=== PATIENT | female | born 1955 | race Caucasian/White ===

== ENCOUNTER 2018-10-11 12:47 | Emergency (ER) | payer OTHER ==
[2018-10-11 13:10] VITALS: BP 160/77
[2018-10-11] MEDS ORDERED: Lidocaine 1% 5ml 10 MG/ML VIAL IJ ONE ×2 (13:39→13:56)
--- NOTE | 2018-10-11 13:39 | ED Physician Documentation ---
General Adult - HPI Stated Complaint: using weedeater and got finger caught Chief Complaint: Laceration/Recheck/Suture Additional Information: Patient presents to ED after sustaining a laceration to left middle finger while using a pipe bowls paint trimmer at home today. Patient is current on tetanus. Left middle finger with 2 lacerations side by side, 2 cm and 3 cm Onset: hours (1) Timing: still present Severity: moderate - ROS CONST: denies: fever EYES/ENT: none CVS/RESP: none GI/: none MS/SKIN/LYMPH: none NEURO/PSYCH: denies: headache - PAST HX Past History: none Other History: diabetes Type 2 Surgeries/Procedures: none Allergies/Adverse Reactions: Allergies Allergy/AdvReac Type Severity Reaction Status Date / Time No Known Allergies Allergy Verified 10/11/18 13:12 Home Medications: Ambulatory Orders Medication Instructions Recorded Cabergoline 1 tab PO DIRECTED 10/11/18 Cephalexin [Keflex] 500 mg PO Q8 #30 capsule 10/11/18 Glimepiride [Amaryl] 4 mg PO BID 10/11/18 Insulin Detemir [Levemir Flextouch] 40 units SQ DAILY 10/11/18 Metformin HCl [Metformin ER 1,000 mg PO BID 10/11/18 Osmotic] Simvastatin 1 tab PO DAILY 10/11/18 - SOCIAL HX Smoking History: non-smoker Alcohol Use: none Drug Use: none - FAMILY HX Family History: No - VITAL SIGNS Vital Signs: Vital Signs Temp Pulse Resp BP Pulse Ox 36.4 F L 91 H 21 160/77 93 10/11/18 13:05 10/11/18 13:05 10/11/18 13:05 10/11/18 13:05 10/11/18 13:05 - REVIEWED ASSESSMENTS Nursing Assessment Reviewed: Yes Vitals Reviewed: Yes Procedures Wound Location: upper extremity Wound Length: 2 cm and 3 cm Wound's Depth, Shape: into muscle, irregular, nail-avulsed Wound Explored: clean Betadine Prep?: Yes Anesthesia: 1% Lidocaine Volume of Anesthetic: 15 Wound Debrided: moderate Wound Repaired With: sutures Suture Size/Type: 4:0 Number of Sutures: 12 Layer Closure?: No Sterile Dressing Applied?: Yes Splint Applied?: No Sling Applied?: No ED Results Lab/Radiology - Radiology Radiology Impressions: Report Submission Date: October 11, 2018 1:33:08 PM CDT Patient Study Name: QUAN JOLLEY Date: October 11, 2018 1:09:14 PM CDT Modality Type: DX Gender: F Description: HAND 3 VIEWS OR MORE : 57 Institution: [facility] Physician: ZEKE THOMAS Examination: Plain film left hand History: PAIN/LACERATION TO LEFT 3RD DIGIT AFTER INJURY WITH HEDGE TRIMMERS TODAY Comparison exams: None available Findings: 3 views of the left hand demonstrates cortical irregularities involvi ng the distal margin of the 3rd digit distal phalanx. Overlying soft tissue injury. Scattered articular degenerative changes. Impression: 3rd digit distal phalanx fracture. Associated soft tissue injury. Electronically signed on October 11, 2018 1:33:08 PM CDT by: Emir Barker - Orders Orders: ED Orders Category Date Time Status HAND 3 VIEWS OR MORE [RAD] Stat Exams 10/11/18 Taken Lidocaine 1% 5ml [Xylocaine] Med 10/11/18 13:39 Discontinued 50 mg IJ NOW ONE Lidocaine 1% 5ml [Xylocaine] Med 10/11/18 13:56 Discontinued 50 mg IJ NOW ONE Lidocaine 1% PF 30ml [Xylocaine 1% 30Ml Vial] Med 10/11/18 13:55 Discontinued 300 mg .ROUTE .STK-MED ONE General Adult Physical Exam - PHYSICAL EXAM GENERAL APPEARANCE: no distress EENT: DIANA NECK: normal inspection, supple RESPIRATORY: no resp distress, chest non-tender, breath sounds normal CVS: reg rate & rhythm, heart sounds normal ABDOMEN: soft BACK: normal inspection SKIN: warm/dry EXTREMITIES: non-tender, edema, other (left middle finger with 2 lacerations side by side, 2 cm and 3 cm) NEURO: oriented X3 Discharge Clincal Impression: Laceration of left middle finger Qualifiers: Encounter type: initial encounter Damage to nail status: with damage Foreign body presence: without foreign body Qualified Code(s): S61.313A - Laceration without foreign body of left middle finger with damage to nail, initial encounter Distal phalanx or phalanges, closed fracture Qualifiers: Encounter type: initial encounter Finger: middle finger Fracture alignment: nondisplaced Laterality: left Qualified Code(s): S62.663A - Nondisplaced fracture of distal phalanx of left middle finger, initial encounter for closed fracture Prescriptions: Cephalexin [Keflex] 500 mg PO Q8 #30 capsule Referrals: Primary Doctor,No [Primary Care Provider] - 2 Days Additional Instructions: 1. Take antibiotics until gone 2. Follow up with PCP in 7-10 days for suture removal. 3. Keep wound clean and dry. No baths, swimming or hot tubs until sutures removed 4. Return to ER for new or worsening symptoms Condition: Stable Disposition: 01 HOME, SELF-CARE Decision to Admit: NO Date of Decison to Admit: 10/11/18 Decision Time: 14:46
[2018-10-11] MEDS ORDERED: LIDOCAINE HCL 1% PF 300MG/30ML VIAL ONE (13:55)
--- NOTE | 2018-10-11 22:08 | Diagnostic Imaging Report ---
ZEKE THOMAS [facility] [id number] [facility] [address] [address] Report Submission Date: October 11, 2018 1:33:08 PM CDT Patient Study Name: QUAN JOLLEY Date: October 11, 2018 1:09:14 PM CDT Modality Type: DX Gender: F Description: HAND 3 VIEWS OR MORE : 57 Institution: [facility] Physician: ZEKE THOMAS Examination: Plain film left hand History: PAIN/LACERATION TO LEFT 3RD DIGIT AFTER INJURY WITH HEDGE TRIMMERS TODAY Comparison exams: None available Findings: 3 views of the left hand demonstrates cortical irregularities involving the distal margin of the 3rd digit distal phalanx. Overlying soft tissue injury. Scattered articular degenerative changes. Impression: 3rd digit distal phalanx fracture. Associated soft tissue injury. Electronically signed on October 11, 2018 1:33:08 PM CDT by: Emir WELLS
== END 2018-10-11 14:54 | disposition home or self-care (01) ==
LOC: ED 12:47 → EDBD 12:47 → ED 14:54
DX: S61.213A Laceration without foreign body of left middle finger without damage to nail, initial encounter (principal); S62.663A Nondisplaced fracture of distal phalanx of left middle finger, initial encounter for closed fracture; W29.3XXA Contact with powered garden and outdoor hand tools and machinery, initial encounter; Y93.H2 Activity, gardening and landscaping; Y92.007 Garden or yard of unspecified non-institutional (private) residence as the place of occurrence of the external cause
CPT/HCPCS: 12002; 73130; 99283; J7030